=== PATIENT | female | born 1960 | race Caucasian/White ===

== ENCOUNTER → 2024-09-05 | Outpatient (CLI) | payer MEDICARE, SELFPAY ==
--- NOTE | 2024-09-05 11:30 | XR_ITS ---
Examination: Ultrasound soft tissue lower back TECHNIQUE: Grayscale sonographic images soft tissue right lower lateral back Date and time: September 05, 2024 1127 hours INDICATIONS: Palpable lump on the lower lateral back noticed beginning 20 years ago. FINDINGS: Circumscribed cystlike area at the area concern 6 x 2 x 7 mm IMPRESSION: Small cyst at the area concern 6 x 2 x 7 mm
== END | disposition home or self-care (01) ==
PROVIDERS: PCP Family Medicine; Referring Provider Family Medicine; Visit Provider Family Medicine
DX: R22.2 Localized swelling, mass and lump, trunk (principal); L72.8 Other follicular cysts of the skin and subcutaneous tissue
CPT/HCPCS: 76705